=== PATIENT | female | born 1980 | race Caucasian/White ===

== ENCOUNTER → 2019-11-17 12:40 | Outpatient (CLI) | payer MEDICARE, MEDICAID, SELFPAY ==
--- NOTE | 2019-11-17 12:45 | XR_ITS ---
PROCEDURE: XR WRIST RT MIN 3V CLINICAL INDICATION: cast removal Follow-up fracture COMPARISON: XR WRIST RT MIN 3V from 10/16/2019 FINDINGS: There is good alignment involving the inverted T shape fracture of the distal radius with a longitudinal component extending into the articular surface in a transverse component distally with some sclerosis developing at the fracture site. Fracture line is still visible.. There is a nondisplaced avulsion fracture at the tip of the ulnar styloid process. IMPRESSION: Healing nondisplaced distal radial fracture with nondisplaced avulsion fracture at the tip of the ulnar styloid Dictated by: Fito Okeefe MD 11/17/2019 13:16 Electronically signed by Fito Okeefe MD in [place] 11/17/2019 13:16
== END ==
PROVIDERS: PCP Emergency Medicine; Visit Provider Orthopaedic Surgery
DX: S62.101A Fracture of unspecified carpal bone, right wrist, initial encounter for closed fracture (principal)
CPT/HCPCS: 73110

== ENCOUNTER → 2019-12-01 12:48 | Outpatient (CLI) | payer MEDICARE, MEDICAID, SELFPAY ==
--- NOTE | 2019-12-01 12:56 | XR_ITS ---
PROCEDURE: XR WRIST RT MIN 3V CLINICAL INDICATION: wrist FX FU Follow-up fracture COMPARISON: XR WRIST RT MIN 3V from 10/16/2019 XR WRIST RT MIN 3V from 11/17/2019 FINDINGS: There is a healing distal radial fracture. Oblique component of the fracture extends into the articular surface as before. Fracture line is somewhat less distinct suggesting healing. There is minimal ulnar and dorsal displacement the medial fracture fragment. IMPRESSION: Healing distal radial fracture with intra-articular involvement Dictated by: Fito Okeefe MD 12/01/2019 13:52 Electronically signed by Fito Okeefe MD in [place] 12/01/2019 13:52
--- NOTE | 2019-12-01 12:56 | XR_ITS ---
PROCEDURE: XR SHOULDER RT MIN 2V CLINICAL INDICATION: shoulder pain COMPARISON: [id number] VIEWS from 01/19/2015 CS5 CERVICAL SPINE 4 OR 5 VIEWS from 03/16/2015 FINDINGS: Glenohumeral joint has an unremarkable appearance. There is a displaced midshaft clavicular fracture. There is 1.7 cm inferior displacement of the distal fracture fragment. IMPRESSION: Negative glenohumeral joint. Displaced ununited midshaft clavicular fracture Dictated by: Fito Okeefe MD 12/01/2019 13:59 Electronically signed by Fito Okeefe MD in [place] 12/01/2019 13:59
== END ==
PROVIDERS: PCP Emergency Medicine; Visit Provider Emergency Medicine
DX: M25.511 Pain in right shoulder (principal); S62.109A Fracture of unspecified carpal bone, unspecified wrist, initial encounter for closed fracture
CPT/HCPCS: 73030; 73110

== ENCOUNTER 2019-12-01 14:30 | Outpatient (RCR) | payer MEDICARE, MEDICAID, SELFPAY | END 2019-12-01 15:00 | disposition home or self-care (01) | LOC: OT 14:30 | PROVIDERS: Visit Provider Orthopaedic Surgery | DX: S52.571D Other intraarticular fracture of lower end of right radius, subsequent encounter for closed fracture with routine healing (principal) | CPT/HCPCS: 97763 ==

== ENCOUNTER → 2019-12-29 13:30 | Outpatient (CLI) | payer MEDICARE, MEDICAID, SELFPAY ==
--- NOTE | 2019-12-29 13:37 | XR_ITS ---
PROCEDURE: XR WRIST RT MIN 3V CLINICAL INDICATION: wrist pain FU Follow-up fracture COMPARISON: XR WRIST RT MIN 3V from 10/16/2019 XR WRIST RT MIN 3V from 11/17/2019 XR WRIST RT MIN 3V from 12/01/2019 FINDINGS: Healing nondisplaced fracture involves the distal radius along the posterior and ulnar aspect with intra-articular involvement. Fracture line appears somewhat less apparent compared to the previous exam. There is nondisplaced avulsion fracture of the ulnar styloid IMPRESSION: Healing distal radial fracture Dictated by: Fito Okeefe MD 12/29/2019 15:54 Electronically signed by Fito Okeefe MD in [place] 12/29/2019 15:54
== END ==
PROVIDERS: PCP Emergency Medicine; Visit Provider Orthopaedic Surgery
DX: S52.501A Unspecified fracture of the lower end of right radius, initial encounter for closed fracture (principal)
CPT/HCPCS: 73110

== ENCOUNTER 2021-07-13 15:24 | Emergency (ER) | payer MEDICARE, MEDICAID, SELFPAY ==
[2021-07-13] VITALS (7 sets, daily range): BP systolic 120–131; BP diastolic 70–82; PULSE 77–89; RESP 14–16; TEMP 36.8; O2SAT 99–100; BMI 28.8
--- NOTE | 2021-07-13 15:30 | XR_ITS ---
PROCEDURE: XR WRIST LT 2V CLINICAL INDICATION: pain fall COMPARISON: CR XR WRIST RT MIN 3V from 10/16/2019 CR XR WRIST RT MIN 3V from 11/17/2019 CR XR WRIST RT MIN 3V from 12/01/2019 DX XR WRIST RT MIN 3V from 12/29/2019 FINDINGS: No fracture or dislocation. No lytic or blastic change. There is normal mineralization. The joint spaces are well-preserved. No significant degenerative/arthritic changes. No erosive changes evident. Other findings:None. IMPRESSION: No acute findings. Dictated by: Fito Okeefe MD 07/13/2021 16:13 Fito Okeefe MD in [place] 07/13/2021 16:13
--- NOTE | 2021-07-13 15:30 | XR_ITS ---
PROCEDURE: XR KNEE LT 2V CLINICAL INDICATION: pain following fall COMPARISON: No exams were available for comparison FINDINGS: No fracture or dislocation. No lytic or blastic change. There is normal mineralization. Mild osteoarthritic change medial compartment and patellofemoral joint. Other findings:None. IMPRESSION: No acute findings. Dictated by: Fito Okeefe MD 07/13/2021 16:08 Fito Okeefe MD in [place] 07/13/2021 16:08
--- NOTE | 2021-07-13 16:28 | HMH.EDGENADL ---
ED Disposition Clinical Impression: Wrist pain, Knee pain Disposition: Home, Self-Care Condition on Discharge: Good Instructions: How to Prevent Falls Additional Instructions: Please follow-up with your primary care physician in 2 to 3 days for further management. Please take Tylenol and ibuprofen for pain control. May also use ice for swelling. Referrals: Johny Herr MD [Primary Care Provider] - Time of Disposition: 18:00 - Critical Care Critical Care Time: No Attestation: On 07/13/21, the high probability of a clinically significant, sudden or life threatening deterioration of the following system(s) required my full and direct attention, intervention and personal management. The time I documented below is in addition to time spent performing reported procedures but includes the following listed in this critical care notation. Medical Decision Making - Medical Records Medical records reviewed: Yes: I reviewed the patient's medical records. - Zia Inquiry Pt receiving controlled substance: No Vital Signs: 07/13/21 15:24 07/13/21 16:20 07/13/21 16:24 Temperature 98.3 F Temperature Source Oral Pulse Rate 87 88 Pulse Rate [Right] 77 Respiratory Rate 16 15 15 Blood Pressure 124/82 124/82 Blood Pressure [Right Arm] 120/70 Blood Pressure Mean 94 Blood Pressure Mean [Right Arm] 86 Blood Pressure Source [Right Arm] Automatic Cuff Blood Pressure Position [Right Arm] Sitting 02 Sat by Pulse Oximetry 100 99 99 Oxygen Delivery Method Room Air 07/13/21 16:30 07/13/21 17:00 07/13/21 17:30 Temperature Temperature Source Pulse Rate 89 86 84 Pulse Rate [Right] Respiratory Rate 14 16 15 Blood Pressure 126/80 130/80 122/80 Blood Pressure [Right Arm] Blood Pressure Mean 90 97 97 Blood Pressure Mean [Right Arm] Blood Pressure Source [Right Arm] Blood Pressure Position [Right Arm] 02 Sat by Pulse Oximetry 100 100 100 Oxygen Delivery Method 07/13/21 17:59 Temperature 98.3 F Temperature Source Oral Pulse Rate 81 Pulse Rate [Right] Respiratory Rate 15 Blood Pressure 131/79 Blood Pressure [Right Arm] Blood Pressure Mean Blood Pressure Mean [Right Arm] Blood Pressure Source [Right Arm] Blood Pressure Position [Right Arm] 02 Sat by Pulse Oximetry Oxygen Delivery Method Room Air - Lab Data Lab results reviewed: Yes: I reviewed the patient's lab results. Medical Decision Narrative: Mrs. Davison is a 40-year-old female with past medical history for [place]'s disease who presents to the emergency department for fall from standing with associated left wrist and knee pain. Patient hit her head but denies loss of consciousness. Patient is neurovascularly intact with no obvious deformities. No open lacerations. Patient ambulatory on scene. Patient denies any other symptoms. X-ray of the left knee and wrist are obtained for further evaluation results are nonactionable. Patient is given Tylenol for comfort and discharged in stable condition. Patient will follow up with primary care physician in 2 to 3 days for further management. General Adult HPI - General Chief complaint: Fall Stated complaint: fall Time Seen by Provider: 07/13/21 15:40 Mode of Arrival: EMS Limitations: No Limitations Description of Symptoms (Recalled from ER Triage Doc. by RN): Pt has dx of [place] and lives in [facility], today while at therapy she stood up and lost her balance and fell and hit her forehead and has left knee and left wrist pain. No obvious deformities and no other complaints - History of Present Illness HPI narrative: Miss Davison i sa 40 yo female w/ cognitive delay has dx of [place] and lives in [facility], today while at therapy she stood up and lost her balance and fell from standing hitting her forehead, negative LOC. She reports left knee and left wrist pain. No obvious deformities and no other complaints. Tarik
--- NOTE | 2021-07-13 17:07 | PC.NURSE ---
have spoke with pt family, they are coming to pt to transport her back to [facility]
== END 2021-07-13 18:00 | disposition home or self-care (01) ==
PROVIDERS: Emergency Provider Student in an Organized Health Care Education/Training Program; PCP Emergency Medicine
DX: M25.532 Pain in left wrist (principal); M25.562 Pain in left knee; S00.90XA Unspecified superficial injury of unspecified part of head, initial encounter; W01.0XXA Fall on same level from slipping, tripping and stumbling without subsequent striking against object, initial encounter; Y92.129 Unspecified place in nursing home as the place of occurrence of the external cause; G10 Huntington's disease; F41.8 Other specified anxiety disorders; F02.80 Dementia in other diseases classified elsewhere, unspecified severity, without behavioral disturbance, psychotic disturbance, mood disturbance, and anxiety; Z79.899 Other long term (current) drug therapy
CPT/HCPCS: 73100; 73560; 99282

== ENCOUNTER 2021-07-17 23:16 | Emergency (ER) | payer MEDICARE, MEDICAID, SELFPAY ==
[2021-07-17 23:17] VITALS: BP 129/81; PULSE 63; RESP 18; TEMP 36.5; O2SAT 98; BMI 24.1
--- NOTE | 2021-07-17 23:23 | CT_ITS ---
PROCEDURE INFORMATION: Exam: CT Head Without Contrast Exam date and time: 07/17/2021 11:23 PM Age: 40 years old Clinical indication: Injury or trauma; Fall; Blunt trauma (contusions or hematomas); Injury date: 07/17/2021; Patient HX: Fell hit left side of head TECHNIQUE: Imaging protocol: Computed tomography of the head without contrast. Radiation optimization: All CT scans at this facility use at least one of these dose optimization techniques: automated exposure control; mA and/or kV adjustment per patient size (includes targeted exams where dose is matched to clinical indication); or iterative reconstruction. COMPARISON: PHOTO EDITOR/O MRI-C-SPINE W/O 03/22/2015 1:28 PM FINDINGS: Brain: Normal. No hemorrhage. Unremarkable white matter. No mass effect. Cerebral ventricles: No ventriculomegaly. Paranasal sinuses: Visualized sinuses are unremarkable. No fluid levels. Mastoid air cells: Visualized mastoid air cells are well aerated. Vasculature: Intraranial artery density is normal. Bones/joints: Unremarkable. No acute fracture. Soft tissues: Unremarkable. IMPRESSION: No acute intracranial abnormality.
--- NOTE | 2021-07-17 23:23 | XR_ITS ---
PROCEDURE INFORMATION: Exam: XR Chest Exam date and time: 07/17/2021 11:23 PM Age: 40 years old Clinical indication: Injury or trauma; Fall; Blunt trauma (contusions or hematomas); Injury date: 07/17/2021 TECHNIQUE: Imaging protocol: XR of the chest. Views: 1 view. COMPARISON: CT CERVICAL SPINE WO CON 07/17/2021 11:47 PM FINDINGS: Lungs: Unremarkable. No consolidation. Pleural spaces: Unremarkable. No pleural effusion. No pneumothorax. Heart/Mediastinum: Unremarkable. No cardiomegaly. Bones/joints: Unremarkable. IMPRESSION: No acute findings.
--- NOTE | 2021-07-17 23:23 | XR_ITS ---
PROCEDURE INFORMATION: Exam: XR Pelvis Exam date and time: 07/17/2021 11:23 PM Age: 40 years old Clinical indication: Injury or trauma; Fall; Blunt trauma (contusions or hematomas); Bilateral; Pelvic region; Injury date: 07/17/2021 TECHNIQUE: Imaging protocol: XR pelvis. Views: 1 or 2 view. COMPARISON: No relevant prior studies available. FINDINGS: Bones/joints: Unremarkable. No acute fracture. Soft tissues: Unremarkable. IMPRESSION: No acute findings.
--- NOTE | 2021-07-17 23:23 | CT_ITS ---
PROCEDURE INFORMATION: Exam: CT Cervical Spine Without Contrast Exam date and time: 07/17/2021 11:23 PM Age: 40 years old Clinical indication: Injury or trauma; Fall; Blunt trauma; Injury date: 07/17/2021; Patient HX: Fell hit left side head TECHNIQUE: Imaging protocol: Computed tomography images of the cervical spine without contrast. Radiation optimization: All CT scans at this facility use at least one of these dose optimization techniques: automated exposure control; mA and/or kV adjustment per patient size (includes targeted exams where dose is matched to clinical indication); or iterative reconstruction. 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 Normal alignment. Discs/Spinal canal/Neural foramina: No significant disc protrusion. No severe spinal canal stenosis. No significant neural foraminal narrowing. Lungs: L there is a calcified granuloma present within the anterior aspect of the right upper lobe. Soft tissues: Granulomatous calcification within lymph nodes of the right paratracheal region, right azygos region, and right hilus noted. IMPRESSION: No evidence of acute fracture or malalignment.
--- NOTE | 2021-07-17 23:26 | HMH.EDFALL ---
ED Disposition Clinical Impression: Orange disease Concussion without loss of consciousness Qualifiers: Encounter type: initial encounter Qualified Code(s): S06.0X0A - Concussion without loss of consciousness, initial encounter Fall Qualifiers: Encounter type: initial encounter Qualified Code(s): W19.XXXA - Unspecified fall, initial encounter Disposition: Home, Self-Care Condition on Discharge: Good Instructions: How to Prevent Falls Additional Instructions: resume prev orders - Critical Care Critical Care Time: No Attestation: On , the high probability of a clinically significant, sudden or life threatening deterioration of the following system(s) required my full and direct attention, intervention and personal management. The time I documented below is in addition to time spent performing reported procedures but includes the following listed in this critical care notation. Medical Decision Making - Medical Records Medical records reviewed: Yes: I reviewed the patient's medical records. - Zia Inquiry Pt receiving controlled substance: No Vital Signs: 07/17/21 23:17 Temperature 97.7 F Temperature Source Oral Pulse Rate [Right Brachial] 63 Respiratory Rate 18 Blood Pressure [Right Arm] 129/81 Blood Pressure Mean [Right Arm] 97 Blood Pressure Source [Right Arm] Automatic Cuff Blood Pressure Position [Right Arm] Sitting 02 Sat by Pulse Oximetry 98 Oxygen Delivery Method Room Air - Lab Data Lab results reviewed: Yes: I reviewed the patient's lab results. - Radiology Data #1 Image(s): Chest, Pelvis Image Reviewed: Yes I have reviewed radiologist's interpretation Preliminary Findings: No Fracture Seen - CT Data CT Scan: Head, C-Spine Time Received: 02:[address] Reviewed: Yes: I have viewed the radiologist's interpretation Preliminary Findings: No Fracture Seen Medical Decision Narrative: pt with no fx and appears at baseline Fall HPI - General Chief Complaint: Fall Stated Complaint: fall Time Seen by Provider: 07/17/21 23:25 Mode of Arrival: EMS Source of Information: Patient, EMS, Medical Record Limitations: [place] Description of Symptoms (Recalled from ER Triage Doc. by RN): pt had an unwitnessed fall prior to ems arrival while at the group home. noted pt has a small lac to left ear. no loc.moves all extremities independently and easily. vss. no other complaints other than head. - History of Present Illness HPI Narrative: fell at [facility] with possible head injury MD complaint: fall Onset (ago): hour(s) Fall from: out of bed Fall witnessed: no Place fall occurred: group home/SNF Loss of consciousness: none Prolonged down time: no Location of injury: head, neck Severity: moderate Associated symptoms (after fall): denies - Related Data Home Medications Medication Instructions Recorded Confirmed acetaminophen 500 mg tablet 500 mg PO Q4H PRN 05/14/18 07/17/21 diclofenac sodium 75 mg 75 mg PO BID 05/14/18 07/17/21 tablet,delayed release multivitamin 1 tab PO DAILY 05/14/18 07/17/21 sennosides 8.6 mg tablet 17.2 mg PO DAILY PRN tab 08/13/18 07/17/21 hydroxyzine HCl 25 mg tablet 25 mg PO QID 04/14/19 07/17/21 risperidone 2 mg tablet 2 mg PO BID 04/14/19 07/17/21 sertraline 100 mg tablet 200 mg PO DAILY tab 04/14/19 07/17/21 Acetaminophen with Codeine 1 tab PO BID 07/17/21 07/17/21 [Acetaminophen w/Codeine #3 Tablet] Lactulose [Constulose] 15 ml PO DAILY 07/17/21 07/17/21 Previous Rx's Medication Instructions Recorded lorazepam 0.5 mg tablet 0.5 mg PO ONCE PRN #14 tab 04/09/20 Allergies Allergy/AdvReac Type Severity Reaction Status Date / Time No Known Allergies Allergy Verified 03/24/21 11:32 [facility] History - Hepatitis A Screen Drug use history?: No High risk sexual behaviors?: No History of sexually transmitted infection?: No Currently employed?: No Childcare worker?: No Do you have indoor plumbing?: Yes Do you have electr
--- NOTE | 2021-07-17 23:45 | PC.NURSE ---
pt in ct at this time
[2021-07-18 02:18] VITALS: BP 112/80; PULSE 85; RESP 16; TEMP 36.7; O2SAT 98
--- NOTE | 2021-07-18 02:51 | PC.NURSE ---
Report called to [facility] here to transport patient.
[2021-07-18 02:52] VITALS: BP 120/72; PULSE 96; RESP 16; TEMP 36.1; O2SAT 98
== END 2021-07-18 03:07 | disposition home or self-care (01) ==
PROVIDERS: Emergency Provider Emergency Medicine; PCP Emergency Medicine
DX: S06.0X0A Concussion without loss of consciousness, initial encounter (principal); S01.312A Laceration without foreign body of left ear, initial encounter; W06.XXXA Fall from bed, initial encounter; Y92.122 Bedroom in nursing home as the place of occurrence of the external cause; G10 Huntington's disease; F02.80 Dementia in other diseases classified elsewhere, unspecified severity, without behavioral disturbance, psychotic disturbance, mood disturbance, and anxiety; F41.8 Other specified anxiety disorders
CPT/HCPCS: 70450; 71045; 72125; 72170; 99283

== ENCOUNTER → 2021-10-04 13:58 | Outpatient (CLI) | payer MEDICARE, MEDICAID, SELFPAY ==
--- NOTE | 2021-10-04 14:06 | XR_ITS ---
FINAL REPORT CLINICAL HISTORY: pain FINDINGS: LEFT ANKLE Three views demonstrate no acute fracture or dislocation. Mild degenerative changes are present. No soft tissue abnormality is seen. IMPRESSION: No acute process. Reviewed, Interpreted and Dictated by Dc Kincaid III, MD Transcribed by Brittanie Watts Authenticated by Dc Kincaid III, MD on 10/04/2021 03:34:58 PM [facility]
--- NOTE | 2021-10-04 14:06 | XR_ITS ---
FINAL REPORT CLINICAL HISTORY: foot injury FINDINGS: RIGHT FOOT Three views of the right foot were obtained. No foot fracture is identified. Mild degenerative changes are present. There is hallux valgus is deformity. No soft tissue abnormality is seen. IMPRESSION: No acute process. Reviewed, Interpreted and Dictated by Dc Kincaid III, MD Transcribed by Brittanie Watts Authenticated by Dc Kincaid III, MD on 10/04/2021 03:35:12 PM [facility]
--- NOTE | 2021-10-04 14:06 | XR_ITS ---
FINAL REPORT CLINICAL HISTORY: fracture eval FINDINGS: RIGHT ANKLE Three views demonstrate fractures of the lateral malleolus, medial malleolus, and anterior distal tibia. There is soft tissue swelling. No other fracture or dislocation. IMPRESSION: Fractures as above. Reviewed, Interpreted and Dictated by Dc Kincaid III, MD Transcribed by Brittanie Watts Authenticated by Dc Kincaid III, MD on 10/04/2021 03:35:[address] [facility]
--- NOTE | 2021-10-04 14:06 | XR_ITS ---
FINAL REPORT CLINICAL HISTORY: foot injury FINDINGS: LEFT FOOT Three views demonstrate no acute fracture or dislocation. There is hallux valgus deformity. Mild degenerative changes are present. No soft tissue abnormality is seen. IMPRESSION: No acute process. Reviewed, Interpreted and Dictated by Dc Kincaid III, MD Transcribed by Brittanie Watts Authenticated by Dc Kincaid III, MD on 10/04/2021 03:35:09 PM [facility]
== END ==
PROVIDERS: PCP Emergency Medicine; Visit Provider Podiatrist
DX: G10 Huntington's disease (principal); M19.071 Primary osteoarthritis, right ankle and foot; M19.072 Primary osteoarthritis, left ankle and foot; T14.8XXA Other injury of unspecified body region, initial encounter
CPT/HCPCS: 73610; 73630

== ENCOUNTER → 2021-11-01 14:21 | Outpatient (CLI) | payer MEDICARE, MEDICAID, SELFPAY ==
--- NOTE | 2021-11-01 14:28 | XR_ITS ---
FINAL REPORT CLINICAL HISTORY: fracture evaluation COMPARISON: October 04, 2021 FINDINGS: RIGHT ANKLE: Three views of the right ankle were obtained. There is a transverse fracture of the medial malleolus. There is an oblique fracture of the lateral malleolus. There is worsening lateral subluxation of the fracture fragments, talus and foot. There is proximally 5 mm of lateral distraction of the medial malleolus. There is 3 mm of distraction of the lateral malleolar fracture. Medial and lateral soft tissue swelling is partially improved. There is increased distraction of the fibular fracture fragment on the lateral view. IMPRESSION: Multiple fractures as above with worsening distraction. Reviewed, Interpreted and Dictated by Dc Kincaid III, MD Transcribed by Nicolas Schmidt Authenticated by Dc Kincaid III, MD on 11/01/2021 04:07:56 PM [facility]
== END ==
PROVIDERS: Visit Provider Podiatrist
DX: S82.841A Displaced bimalleolar fracture of right lower leg, initial encounter for closed fracture (principal)
CPT/HCPCS: 73610

== ENCOUNTER → 2021-11-29 14:27 | Outpatient (CLI) | payer MEDICARE, MEDICAID, SELFPAY ==
--- NOTE | 2021-11-29 14:33 | XR_ITS ---
FINAL REPORT CLINICAL HISTORY: fracture follow up, SIMULATED WEIGHTBEARING VIEWS PATIENT CANNOT STAND WITHOUT FALLING. PATIENT DONE SITTING IN W/C. BEARING MUCH WEIGHT POSSIBLE ON RIGHT ANKLE. COMPARISON: November 01, 2021 FINDINGS: RIGHT ANKLE: Three views of the right ankle were obtained. There are fractures of the medial and lateral malleoli. There is a fracture of the posterior distal tibia. There is no significant change in bony alignment. There is increased callus formation at the distal fibula. There is soft tissue swelling about the ankle. IMPRESSION: Fractures as above without significant change in bony alignment. Reviewed, Interpreted and Dictated by Dc Kincaid III, MD Transcribed by Nicolas Schmidt Authenticated by Dc Kincaid III, MD on 11/29/2021 03:54:02 PM [facility]
== END ==
PROVIDERS: Visit Provider Nurse Practitioner Family
DX: S82.841A Displaced bimalleolar fracture of right lower leg, initial encounter for closed fracture (principal)
CPT/HCPCS: 73610

== ENCOUNTER → 2021-12-27 13:52 | Outpatient (CLI) | payer MEDICARE, MEDICAID, SELFPAY ==
--- NOTE | 2021-12-27 13:55 | XR_ITS ---
FINAL REPORT CLINICAL HISTORY: Fracture follow up COMPARISON: November 29, 2021 FINDINGS: RIGHT ANKLE: Three views of the right ankle were obtained. There is a subacute fracture of the distal fibular metaphysis and the medial malleolus. Bony alignment is stable. There is new increased bone formation at the fibular fracture site. There is no significant callus formation at the medial malleolar fracture. There is significant soft tissue swelling. There is osteopenia. IMPRESSION: Distal fibular and medial malleolar fractures as above. Reviewed, Interpreted and Dictated by Dc Kincaid III, MD Transcribed by Nicolas Schmidt Authenticated by Dc Kincaid III, MD on 12/28/2021 08:55:[address] [facility]
== END ==
PROVIDERS: PCP Emergency Medicine; Visit Provider Podiatrist
DX: S82.841A Displaced bimalleolar fracture of right lower leg, initial encounter for closed fracture (principal)
CPT/HCPCS: 73610

== ENCOUNTER → 2022-02-07 12:41 | Outpatient (CLI) | payer MEDICARE, MEDICAID, SELFPAY ==
--- NOTE | 2022-02-07 12:51 | XR_ITS ---
FINAL REPORT CLINICAL HISTORY: FRACTURE EVAL COMPARISON: 12/27/2021 FINDINGS: RIGHT ANKLE 3 views of the right ankle were obtained. There is redemonstration of the known healing displaced oblique fracture of the distal fibula. Callus formation appears increased as compared to the previous exam. The mortise is disrupted. There is widening of the medial mortise and on the lateral view there is widening of the anterior mortise. The medial malleolus exists as a free fragment. Soft tissues are unremarkable. IMPRESSION: Healing distal fibular fracture with continued evidence of disruption of the mortise. Probable underlying ligamentous injury. Medial malleolus exists as a free fragment. Reviewed, Interpreted and Dictated by Lisandro Shepherd MD Transcribed by Cordelia Lawrence Authenticated and . [facility]
== END ==
PROVIDERS: PCP Emergency Medicine; Visit Provider Podiatrist
DX: T14.8XXA Other injury of unspecified body region, initial encounter (principal); M25.571 Pain in right ankle and joints of right foot
CPT/HCPCS: 73610

== ENCOUNTER → 2022-04-18 14:20 | Outpatient (CLI) | payer MEDICARE, MEDICAID, SELFPAY ==
--- NOTE | 2022-04-18 14:29 | XR_ITS ---
FINAL REPORT CLINICAL HISTORY: pain COMPARISON: February 07, 2022 FINDINGS: RIGHT ANKLE: Three views of the right ankle were obtained. There is a healing, displaced fracture of the distal fibula. The distal fracture fragment is mildly displaced posteriorly. The medial malleolus exists as a free fragment. There is narrowing of the mortise. There is lateral subluxation of the talus relative to the distal tibia. IMPRESSION: Healing fracture with disruption of the mortise. Reviewed, Interpreted and Dictated by Lisandro Shepherd MD Transcribed by Nicolas Schmidt Authenticated and [facility]
== END ==
PROVIDERS: Visit Provider Podiatrist
DX: T14.8XXA Other injury of unspecified body region, initial encounter; S99.911D Unspecified injury of right ankle, subsequent encounter; M25.571 Pain in right ankle and joints of right foot
CPT/HCPCS: 73610

== ENCOUNTER → 2022-06-13 13:33 | Outpatient (CLI) | payer MEDICARE, MEDICAID, SELFPAY ==
--- NOTE | 2022-06-13 13:36 | XR_ITS ---
FINAL REPORT CLINICAL HISTORY: followup on right ankle fracture COMPARISON: 04/18/2022 FINDINGS: Right ankle Three views were obtained. There is been progressive healing of the fracture of the distal fibula. Oblique line remains visible on the lateral view. The mortise appears more properly aligned. There is a healing fracture through the base of the medial malleolus. IMPRESSION: Fractures of the medial and lateral malleoli with progressive healing from previous. Interval reduction of the mild subluxation of the mortise, probably due to underlying ligamentous injury. Reviewed, Interpreted and Dictated by Lisandro Shepherd MD Transcribed by Brittanie Watts Authenticated and [facility]
== END ==
PROVIDERS: PCP Emergency Medicine; Visit Provider Podiatrist
DX: S82.51XK Displaced fracture of medial malleolus of right tibia, subsequent encounter for closed fracture with nonunion (principal); T14.8XXA Other injury of unspecified body region, initial encounter
CPT/HCPCS: 73610

== ENCOUNTER 2022-06-21 12:32 | Emergency (ER) | payer MEDICARE, MEDICAID, SELFPAY ==
[2022-06-21 12:32] VITALS: BP 119/75; PULSE 78; RESP 20; TEMP 36.8; O2SAT 99; BMI 29.8
--- NOTE | 2022-06-21 12:36 | XR_ITS ---
FINAL REPORT CLINICAL HISTORY: pain COMPARISON: November 2019 FINDINGS: 2 views of the right clavicle were obtained. 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 There is mild AC joint degenerative change. There is no soft tissue abnormality. 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 Reviewed, Interpreted and Dictated by Dc Kincaid III, MD Transcribed by Nicolas Schmidt Authenticated and . [facility]
--- NOTE | 2022-06-21 12:44 | HMH.EDGENADL ---
Discharge Plan Disposition Patient Disposition: Home, Self-Care Condition: Good Prescriptions Prescriptions: No Action multivitamin tablet 1 tab PO DAILY diclofenac sodium 75 mg tablet,delayed release (DR/EC) 75 mg PO BID risperidone 4 mg tablet 4 mg PO trazodone 50 mg tablet 50 mg PO sertraline 25 mg tablet 25 mg PO sennosides [senna] 8.6 mg tablet 17.2 mg PO DAILY PRN (Reason: stool) sertraline 100 mg tablet 200 mg PO DAILY omeprazole 20 mg capsule,delayed release(DR/EC) 20 mg PO acetaminophen-codeine 300-30 mg tablet 1 tab PO BID Qty: 60 5RF clonazepam 1 mg tablet 1 mg PO QID Qty: 120 5RF lactulose 10 GM/15 ML solution 15 ml PO DAILY Referrals Follow up/Referrals: Provider,Referral, MD [Primary Care Provider] - See instructions Activity Restrictions/Add. Instructions Additional Instructions/Restrictions: A sling may be worn as needed for discomfort. Tylenol as needed for discomfort. 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 by RN): pt to ed via ems c/o right clavicle pain. pt states it started hurting this morning. pt denies fall or injury. History of Present Illness HPI narrative: [facility] local [facility] with concern for possible right clavicle injury. Evidently staff was caring for the patient this morning when they noticed possible discoloration to the right clavicular area. She does have a previous history of right clavicle fracture with nonunion. My direct questioning the patient she does point to the right shoulder and clavicle area as the area of discomfort. HPI somewhat limited to the patient being a poor historian oriented only to person place not time Related Data Home Medications Medication Instructions Recorded Confirmed diclofenac sodium 75 mg 75 mg PO BID stools 05/14/18 06/13/22 tablet,delayed release multivitamin 1 tab PO DAILY Diet supplement 05/14/18 06/13/22 sennosides 8.6 mg tablet (senna) 17.2 mg PO DAILY PRN stool 08/13/18 06/13/22 sertraline 100 mg tablet 200 mg PO DAILY Anxiety 04/14/19 06/13/22 lactulose 10 gram/15 mL oral 15 ml PO DAILY constipation 07/17/21 06/13/22 solution omeprazole 20 mg capsule,delayed 20 mg PO 10/04/21 06/13/22 release risperidone 4 mg tablet 4 mg PO 02/07/22 06/13/22 sertraline 25 mg tablet 25 mg PO 02/07/22 06/13/22 trazodone 50 mg tablet 50 mg PO 02/07/22 06/13/22 Previous Rx's Medication Instructions Recorded acetaminophen 300 mg-codeine 30 mg 1 tab PO BID Pain #60 tabs 02/03/22 tablet clonazepam 1 mg tablet 1 mg PO QID #120 tabs 03/10/22 Allergies Allergy/AdvReac Type Severity Reaction Status Date / Time No Known Allergies Allergy Verified 06/13/22 13:11 PFSH PFS Medical History Dementia Depression Dysphagia Fracture of right clavicle with nonunion Impulsiveness Insomnia Obesity Social History Smoking Status: Never smoker alcohol intake: former substance use type: marijuana current occupational status: disabled Travel in the last 8 weeks: None housing: [facility] current occupational exposures/hazards: No ROS Obtained: Yes unobtainable due to mental condition Physical Exam General General appearance: alert and in no apparent distress Head Head exam: atraumatic and normocephalic Eye Eye exam: Present normal appearance ENT ENT exam: Present normal exam and normal oropharynx Neck Neck exam: Present normal inspection and full ROM Chest Chest inspection: Present normal
--- NOTE | 2022-06-21 13:00 | PC.NURSE ---
RT at the bedside
[2022-06-21 13:30] VITALS: BP 142/79; PULSE 64; O2SAT 99
--- NOTE | 2022-06-21 14:32 | PC.NURSE ---
called report to [facility]
--- NOTE | 2022-06-21 15:20 | PC.NURSE ---
[facility] here for pt
[2022-06-21 15:30] VITALS: BP 132/70; PULSE 60; RESP 20; TEMP 36.8; O2SAT 99
== END 2022-06-21 15:31 | disposition home or self-care (01) ==
PROVIDERS: Emergency Provider Emergency Medicine
DX: S42.02 Fracture of shaft of clavicle (principal); Z79.899 Other long term (current) drug therapy; F03.90 Unspecified dementia, unspecified severity, without behavioral disturbance, psychotic disturbance, mood disturbance, and anxiety; F32.A Depression, unspecified
CPT/HCPCS: 73000; 99283

== ENCOUNTER 2023-10-04 23:57 | Emergency (ER) | payer MEDICARE, MEDICAID, SELFPAY ==
[2023-10-04 23:57] VITALS: BP 111/75; PULSE 69; RESP 16; TEMP 36.4; O2SAT 99; BMI 14.6
--- NOTE | 2023-10-04 23:58 | CT_ITS ---
PROCEDURE INFORMATION: Exam: CT Cervical Spine Without Contrast Exam date and time: 10/05/2023 12:14 AM Age: 42 years old Clinical indication: Injury or trauma; Fall; Additional info: Fall, non-verbal TECHNIQUE: Imaging protocol: Computed tomography of the cervical spine without contrast. Radiation optimization: All CT scans at this facility use at least one of these dose optimization techniques: automated exposure control; mA and/or kV adjustment per patient size (includes targeted exams where dose is matched to clinical indication); or iterative reconstruction. COMPARISON: 1. CT CERVICAL SPINE WO CON 07/17/2021 11:[address] HEAD/BRAIN WO CON 10/05/2023 12:[address] HEAD/BRAIN WO CON 07/17/2021 11:44 PM FINDINGS: Bones/joints: The alignment of the cervical spine is within normal limits. No evidence of acute fractures, dislocations, or subluxations is noted. The vertebral bodies and intervertebral disc spaces are well-preserved. The spinal canal is patent, with no evidence of spinal stenosis or neural foraminal narrowing. No acute posttraumatic changes are observed. There is no evidence of ligamentous injury, soft tissue swelling, or hematoma. While this study was primarily performed in the context of trauma, it is worth noting that there are no significant degenerative changes. Prevertebral and retropharyngeal spaces: The prevertebral and paraspinous soft tissues appear normal, without evidence of fluid collection. Lungs: Lung apices are normal. Nerves: No significant nerve root impingement is identified. Soft tissues: See Bones/joints finding. IMPRESSION: In the context of posttraumatic evaluation, the cervical spine CT demonstrates no acute fractures, dislocations, or subluxations. There is no evidence of spinal canal or neural foraminal stenosis. No acute posttraumatic soft tissue or ligamentous injuries are identified.
--- NOTE | 2023-10-04 23:58 | CT_ITS ---
PROCEDURE INFORMATION: Exam: CT Head Without Contrast Exam date and time: 10/05/2023 12:12 AM Age: 42 years old Clinical indication: Injury or trauma; Fall; Additional info: Fall, facial trauma, non-verbal TECHNIQUE: Imaging protocol: Computed tomography of the head without contrast. Radiation optimization: All CT scans at this facility use at least one of these dose optimization techniques: automated exposure control; mA and/or kV adjustment per patient size (includes targeted exams where dose is matched to clinical indication); or iterative reconstruction. COMPARISON: 1. CT HEAD/BRAIN WO CON 07/17/2021 11:[address] CERVICAL SPINE WO CON 07/17/2021 11:47 PM FINDINGS: Brain: The brain parenchyma appears unremarkable, with no signs of acute intracranial hemorrhage or significant mass effect. There is hypodensity in the subcortical and periventricular white matter which is technically nonspecific but most often related to chronic microvascular disease. Cerebral ventricles: Mild ventricular enlargement consistent with age-related cerebral atrophy is noted. Paranasal sinuses: Paranasal sinuses show age-appropriate mucosal thickening. Mastoid air cells: Visualized mastoid air cells are well aerated. Bones/joints: There are no skull fractures or bony lesions. Soft tissues: Unremarkable. IMPRESSION: Presumably age-related and chronic changes without acute intracranial abnormality.
--- NOTE | 2023-10-04 23:59 | XR_ITS ---
PROCEDURE INFORMATION: Exam: XR Chest Exam date and time: 10/05/2023 12:01 AM Age: 42 years old Clinical indication: Injury or trauma; Fall TECHNIQUE: Imaging protocol: Radiologic exam of the chest. Views: 1 view. COMPARISON: CR XR CHEST PORTABLE 07/17/2021 11:57 PM FINDINGS: Lungs: There is mild coarsening of the bronchovascular markings with hyperinflation suggesting underlying obstructive airways disease. Pleural spaces: No large effusion or pneumothorax. Heart/Mediastinum: Stable cardiac and mediastinal contours. Bones/joints: Partially visualized left humeral surgical hardware. Gastrointestinal tract: There is large volume stool throughout the colon. IMPRESSION: No dense parenchymal consolidation, pleural effusion, or pneumothorax.
--- NOTE | 2023-10-04 23:59 | XR_ITS ---
PROCEDURE INFORMATION: Exam: XR Pelvis Exam date and time: 10/05/2023 12:01 AM Age: 42 years old Clinical indication: Pelvic pain; Additional info: Fall TECHNIQUE: Imaging protocol: Radiologic exam of the pelvis. Views: 1 or 2 view. COMPARISON: CR XR PELVIS 1-2V 07/17/2021 11:57 PM FINDINGS: Bones/joints: The osseous structures appear intact with no evidence of acute fracture, dislocation, or malalignment. Joint spaces are preserved. No abnormal bone density or destructive lesions are noted. Soft tissues: Soft tissues appear unremarkable. Other findings: The patient is rotated which mildly limits the study. IMPRESSION: 1. The patient is rotated which mildly limits the study. 2. At the time of imaging, there is no evidence for acute osseous abnormalities. Clinical correlation is advised for comprehensive assessment.
--- NOTE | 2023-10-04 23:59 | HMH.EDGENADL ---
Discharge Plan Disposition Patient Disposition: Home, Self-Care Prescriptions Prescriptions: No Action multivitamin tablet 1 tab PO DAILY risperidone 4 mg tablet 4 mg PO omeprazole 20 mg capsule,delayed release(DR/EC) 20 mg PO clonazepam 1 mg tablet 2 mg PO HS Qty: 60 2RF acetaminophen 500 mg capsule 500 mg PO Q4H PRN (Reason: pain/fever) Qty: 90 0RF asenapine 5.7 mg/24 hour patch 24 hour 5.7 mg transdermal DAILY haloperidol 5 mg tablet 5 mg PO BID loratadine 10 mg tablet 10 mg PO DAILY melatonin 3 mg capsule 3 mg PO HS PRN oxcarbazepine 300 mg tablet 600 mg PO HS mirtazapine [Remeron] 15 mg tablet 15 mg PO HS risperidone [Risperdal] 3 mg tablet 3 mg PO DAILY senna-docusate sodium Capsule 2 cap PO HS acetaminophen-codeine 300-30 mg tablet 1 tab PO BID PRN (Reason: pain) Qty: 60 0RF Referrals Follow up/Referrals: Provider,Referral, MD [Primary Care Provider] - See instructions Activity Restrictions/Add. Instructions Additional Instructions/Restrictions: Please follow-up with your primary care provider. Please return to the emergency department if you develop any new or worsening symptoms or become concerned for your health. 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 Patient sleeps on a bed that is low to the ground, was noted to be on the ground, happened approximate 1 to 2 hours prior to arrival but exact time is unknown. Patient has mild bruising to the face. No other obvious injury reported by EMS. Patient is unable to provide any significant history regarding the events of the day, but is awake and appears in no acute distress. Related Data Home Medications Medication Instructions Recorded Confirmed multivitamin 1 tab PO DAILY Diet supplement 05/14/18 08/14/23 omeprazole 20 mg capsule,delayed 20 mg PO 10/04/21 08/14/23 release risperidone 4 mg tablet 4 mg PO 02/07/22 08/14/23 asenapine 5.7 mg/24 hour 5.7 mg transdermal DAILY 08/17/23 transdermal 24 hour patch mood/behavior haloperidol 5 mg tablet 5 mg PO BID insomnia 08/17/23 loratadine 10 mg tablet 10 mg PO DAILY 08/17/23 melatonin 3 mg capsule 3 mg PO HS PRN 08/17/23 mirtazapine 15 mg tablet (Remeron) 15 mg PO HS 08/17/23 oxcarbazepine 300 mg tablet 600 mg PO HS 08/17/23 risperidone 3 mg tablet (Risperdal) 3 mg PO DAILY 08/17/23 senna-docusate sodium capsule 2 cap PO HS 08/17/23 Previous Rx's Medication Instructions Recorded clonazepam 1 mg tablet 2 mg (2 x 1 mg) PO HS #60 tabs 08/13/23 acetaminophen 500 mg capsule 500 mg PO Q4H PRN pain/fever #90 08/17/23 caps acetaminophen 300 mg-codeine 30 mg 1 tab PO BID PRN pain #60 tabs 09/27/23 tablet Allergies Allergy/AdvReac Type Severity Reaction Status Date / Time No Known Allergies Allergy Verified 08/03/23 16:35 [facility] Disclaimer: The information contained in this section may have been updated after the patient was seen, as this information can be updated by other users. Medical History Dementia Depression Dysphagia Fracture of right clavicle with nonunion Impulsiveness Insomnia Obesity Social History (Updated 08/03/23 @ 16:36 by Taniya Raymond) Smoking Status: Unknown if ever smoked second hand exposure: No alcohol intake: former substance use type: marijuana current occupational status: disabled Travel in the last 8 weeks: None housing: intermediate current occupational exposures/hazards: No ROS Obtained: Yes unobtainable due to mental condition Physical Exam General General appearance: alert and in no apparent distress Head Head exam: normocephalic and other (Subtle erythema and bruising to the forehead and cheek) Eye Eye exam: Present normal appearance, PERRL and EOMI ENT ENT exam: Present normal oropharynx and normal external ear exam Neck Neck exam: Present normal inspection and full ROM; Absent tenderness Chest Chest inspection: Present normal inspection and symmetric chest wall rise; Absent tenderness Respiratory Respiratory exam: Present normal lung sounds bilaterally; Absent respiratory distress Cardiovascular Cardiovascular exam: Present regular rate and normal rhythm Abdominal Exam Abdominal exam: Present soft; Absent distention, tenderness or guarding Extremities Exam Extremities exam: Present normal inspection and other (No apparent tenderness or deformity or bruising on exam); Absent edema or joint swelling Back Exam Back exam: Present normal inspection; Absent tenderness Neurological Exam Neurological exam: Present alert and oriented X3; Absent motor sensory deficit Psychiatric Psychiatric exam: Present normal affect and normal mood Skin Skin exam: Present warm, dry and normal color Lymphatic Lymphatic Findings: no adenopathy Medical Decision Making Medical Records Medical records reviewed: Yes I reviewed the patient's medical records. Zia Inquiry Pt receiving controlled substance: No Zia was queried for this patient: No Vital Signs: 10/04/23 23:57 Temperature 97.5 F L Temperature Source Oral Pulse Rate [Left] 69 Respiratory Rate 16 Blood Pressure [Right Arm] 111/75 Blood Pressure Mean [Right Arm] 87 Blood Pressure Source [Right Arm] Automatic Cuff Blood Pressure Position [Right Arm] Supine 02 Sat by Pulse Oximetry 99 Oxygen Delivery Method Room Air Lab Data Lab results reviewed: Yes I reviewed the patient's lab results. 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 History was obtained interactive discussion with EMS, chart review. On arrival, patient is afebrile, hemodynamically stable, at baseline mental status, nonverbal. full physical exam performed and significant for forehead bruising, slight bruising to the left cheek, otherwise no evidence of trauma on exam. Differential includes but is not limited to intracranial trauma, spine trauma, intrathoracic trauma, intra-abdominal trauma, extremity trauma. Workup initiated including CT head, CT C-spine, radiographs of the chest and pelvis to assess for traumatic injury. On re-evaluation, patient [remains afebrile, HD stable.] Imaging independently interpreted by me and significant for no evidence of acute intracranial bleeding, no evidence of cervical spine fracture, no obvious rib fracture or pelvic fracture. See radiology read for full review of final results. Labs and contrasted trauma scans was considered, but deemed unnecessary due to low mechanism and otherwise benign physical exam.. Given patient history, exam and workup, patient's presentation most likely represents fall, facial bruising. Patient was discharged back to nursing facility in stable condition. Procedures Risk/Benefits of Procedure(s) Were Explained: Yes Critical Care Critical Care Time Critical Care Time: No
--- NOTE | 2023-10-05 01:07 | PC.NURSE ---
Report called back to [facility], [place]
[2023-10-05 01:44] VITALS: BP 106/88; PULSE 80; RESP 16; TEMP 36.6; O2SAT 99
== END 2023-10-05 01:51 | disposition home or self-care (01) ==
PROVIDERS: Emergency Provider Emergency Medicine
DX: S00.83XA Contusion of other part of head, initial encounter (principal); G10 Huntington's disease; W19.XXXA Unspecified fall, initial encounter
CPT/HCPCS: 70450; 71045; 72125; 72170; 99285